=== PATIENT | female | born 1995 | race Caucasian/White ===

== ENCOUNTER → 2022-04-07 | Outpatient (CLI) | payer OTHER ==
--- NOTE | 2022-04-07 14:25 | US ---
EXAMINATION TYPE: Ultrasound OB <= 14 week fetus DATE OF EXAM: 04/07/2022 9:34 AM COMPARISON: NONE CLINICAL HISTORY: 26-year-old female Z36.89, ENCOUNTER FOR OTHER SPECIFIED SCREENING. Confi rmation of EXAM PERFORMED: Transabdominal (TA) FINDINGS: EXAM MEASUREMENTS: GESTATIONAL AGE / DATING Physician Established: Not yet established Dates by LMP: 9 weeks/2 days) EDC: 11/08/2022 Dates by First Scan: No previous this is first scan Dates by Current Scan for: (9 weeks/0 days) EDC: 11/10/2022 MATERNAL ANATOMY Uterus: 12.8 x 6.9 x 8.3 cm Right Ovary: 4.6 x 2.1 x 2.1 cm Left Ovary: 3.8 x 2.8 x 2.3 cm Post CDS / Adnexa: Appears wnl Presence of free fluid: No Presence of corpus luteal cyst: Yes left ovary 2.0 x 1.4 x 1.8 cm Presence of subchorionic bleed: Yes, measuring 2.1 x 0.8 x 1.5 cm adjacent to GS on the left GESTATION / SURVEY CRL:18.15 mm 8 weeks/3 days) MSD: 3.99 cm(9 weeks/4 days) Yolk Sac (normal less than 6mm): 4 mm Heart Rate: 155pm Rhythm: Normal IUP: Viable IUP Date of LMP: 02/01/2022 Beta HcG (if available): Not available IMPRESSION: 1. Single live intrauterine with estimated gestational age of 9 weeks 2 days by LMP. Curren t ultrasound biometry is concordant (9 weeks 0 days). 2. Small left-sided perigestational bleed. 3. Short interval follow-up can be considered. Otherwise, routine survey recommended at 18-20 w eeks.
== END | disposition home or self-care (01) ==
LOC: RADUSWWP 08:51
PROVIDERS: ATTEND Obstetrics & Gynecology
DX: Z36.89 Encounter for other specified antenatal screening (principal); Z3A.09 9 weeks gestation of pregnancy
CPT/HCPCS: 76801

== ENCOUNTER → 2022-11-01 | Outpatient (CLI) | payer OTHER ==
--- NOTE | 2022-10-31 07:36 | P.HPOB ---
History of Present Illness H&P Date: 10/31/22 Chief Complaint: Patient presents for delivery This patient is a pleasant 27-year-old 3 para 2 female estimated date of confinement 11/08/2022 estimated gestational age 39 weeks who presents to labor and delivery for delivery. Patient's is been complicated by an unstable lie. She was breech at 35 weeks and then an oblique at 37 weeks and most recently she reverted back to breech. Patient I discussed management of this and she wishes to proceed with trial of external cephalic version. If unsuccessful that she would like to proceed with section and tubal ligation. Patient's otherwise has been uncomplicated. Review of Systems Genitourinary: Reports Menstruation: Reports amenorrhea Past Medical History Additional Past Medical History / Comment(s): Patient's had 2 previous vaginal deliveries. She reports a hemorrhage with her last baby. History of Any Multi-Drug Resistant Organisms: None Reported Past Surgical History: No Surgical Hx Reported Past Anesthesia/Blood Transfusion Reactions: No Reported Reaction Past Psychological History: No Psychological Hx Reported Smoking Status: Never smoker Past Alcohol Use History: None Reported Past Drug Use History: None Reported Medications and Allergies Allergies Allergy/AdvReac Type Severity Reaction Status Date / Time No Known Allergies Allergy Verified 10/31/22 07:33 Exam - OBG Physical Exam Abdomen: bowel sounds normal, no diffuse tenderness, no bruit present, no guarding noted, no hepatomegaly, no splenomegaly, no mass Vulva: both: normal Vagina: normal moisture, no discharge Cervix: no lesion (Cervix in the office is 1 cm uneffaced), no discharge Uterus: enlarged (Fundal height is 38 cm) Results blood work shows she is A positive, rubella immune, RPR nonreactive, HIV is nonreactive, hepatitis B was negative, quad screen was negative, group B strep was negative, Glucola was 126. Most recent ultrasound showed estimated weight 5 lbs. 9 oz. noemi breech presentation Assessment and Plan Assessment: This is a pleasant 27-year-old 3 para 2 female 39-0/7 gestation who presents for delivery. Patient's had an unstable lie the last few weeks and plan at this time is to try an external cephalic version. If unsuccessful patient desires to proceed with section and also requests permanent sterilization at that time. I did discuss these procedures in detail with the patient and she understands the risks. All the patient's questions are answered and a written consent is obtained. (1) 39 weeks gestation of Status: Acute Code(s): Z3A.39 - 39 WEEKS GESTATION OF SNOMED Code(s): 66199659 (2) Unstable lie Status: Acute Code(s): O32.0XX0 - MATERNAL CARE FOR UNSTABLE LIE, NOT APPLICABLE OR UNSP SNOMED Code(s): 12470501 (3) Elective induction of labor planned Status: Acute Code(s): ZAP4880 - SNOMED Code(s): 425685954
[~2022-11-01] MED LIST: CITRIC ACID-SODIUM CITRATE 15 ML CUP PO ONE; HYDROmorphone 0.5 MG/0.5 ML SYRINGE IVP PRN; LACTATED RINGERS 1,000 ML IV ONE; LACTATED RINGERS 1,000 ML IV SCH; LIDOCAINE 0.5% (PF) 5 MG/ML (50 ML SDV) SQ PRN; OXYTOCIN 30 UNITS/500 ML NS 30 UNIT in SALINE 1 500ML.BAG IV SCH; TERBUTALINE 1 MG/ML VIAL SQ PRN
[2022-11-01 06:09] LABS: Basophils % (A) 1 %; Eosinophils % (A) 1 %; HCT 33.7 % (34.0-46.0); HGB 11.6 gm/dL (11.4-16.0); Lymphocytes % (A) 23 %; MCH 33.9 pg (25.0-35.0); MCHC 34.3 g/dL (31.0-37.0); MCV 98.8 fL (80.0-100.0); Mean Platelet Volume 7.9; Monocytes # (A) 0.3 k/uL (0-1.0); Monocytes % (A) 8 %; Neutrophils # (A) 2.8 k/uL (1.3-7.7); Neutrophils % (A) 65 %; Platelet Count 212 k/uL (150-450); RBC 3.41 m/uL (3.80-5.40); WBC 4.2 k/uL (3.8-10.6)
[2022-11-01 06:20] VITALS: BP 116/70; PULSE 83; RESP 16; TEMP 97.5
--- NOTE | 2022-11-01 06:35 | P.PN ---
Progress Note - Text Progress Note Date: 11/01/22 Patient presented to labor and delivery for trial of external cephalic version. Ultrasounds done at bedside which shows persistent breech with the head on the right upper quadrant. 3 attempts are made at external cephalic version without success. Patient this time wishes to proceed with section. She has changed her mind and does not want to have a tubal ligation. Plan is to keep the patient is admitted and do the section probably later today pending scheduling.
--- NOTE | 2022-11-03 09:00 | P.PN ---
Progress Note - Text Progress Note Date: 11/03/22 (748) Anesthesia Postop day 1 Subjective: Status Post with Duramorph. Patient seen and examined. Doing well without complaint. VAS 0/10 overnight. No nausea or vomiting. Mild pruritus tolerable.. Denies fever. Gross lower extremity strength intact. Without apparent anesthetic complications. Objective: Vital signs reviewed Heart: Regular Rate Lungs: Good chest excursion Abdomen: Appears nondistended Assessment: Status post with Duramorph postop day 1 Plan: Continue current care with your medical management. Anticipate increase in pain needs today since Duramorph is finished
--- NOTE | 2022-11-03 17:56 | P.DS ---
Providers Date of admission: 11/01/22 05:43 Expected date of discharge: 11/01/22 Attending physician: Thomas Lucero Primary care physician: Stated None - Discharge Diagnosis(es) (1) 39 weeks gestation of Status: Acute (2) Unstable lie Status: Acute (3) Elective induction of labor planned Status: Acute Hospital Course: Please see dictated H&P and patient's admission. Brief summary is a 27-year-old 3 para 2 female 39 weeks gestation admitted for attempted cephalic version. This was unsuccessful, patient was monitored for over 6 hours and then felt be stable for discharge home to follow up the next day for a primary section. Procedures: External cephalic version, unsuccessful Patient Condition at Discharge: Good Plan - Discharge Summary Discharge Rx Participant: Yes New Discharge Prescriptions: No Action Vit No.179/Iron/Folic [ Tablet] 1 tab PO DAILY Famotidine [Pepcid] 20 mg PO DAILY Discharge Medication List Famotidine [Pepcid] 20 mg PO DAILY 11/01/22 [History] Vit No.179/Iron/Folic [ Tablet] 1 tab PO DAILY 11/01/22 [History] Discharge Disposition: HOME SELF-CARE
== END ==
LOC: FBPOP 05:43 → INTOOBSV 05:43 → 4FBP 05:43 → UNDOADMOB 05:43 → EDSTATUS 06:00 → UNDODISOB 11:50
PROVIDERS: ATTEND Obstetrics & Gynecology
DX: O32.0XX0 Maternal care for unstable lie, not applicable or unspecified (principal); Z3A.39 39 weeks gestation of pregnancy
CPT/HCPCS: 85025; 86850; 86900; 86901; 96360; 96361

== ENCOUNTER 2022-11-25 17:38 | Inpatient (IN) | payer OTHER ==
--- NOTE | 2022-11-25 19:49 | ED ---
General Adult HPI - General Source: patient, RN notes reviewed, old records reviewed Mode of arrival: ambulatory Limitations: no limitations <Den Mccormack - Last Filed: 11/25/22 19:47> <Jaxson Lott - Last Filed: 11/25/22 22:36> - General Chief complaint: Recheck/Abnormal Lab/Rx Stated complaint: headache, hypertension - post op Time Seen by Provider: 11/25/22 19:10 - History of Present Illness Initial comments: 27-year-old female, 23 days presenting for evaluation of elevated blood pressure. Patient states she has had a headache over the past one week. She was seen by her dentist 3 days ago and was told that her blood pressure was elevated. She had contacted her OB office and was instructed to monitor symptoms. She was not evaluated at that time. She presents today with elevated blood pressure, headache. Denies any difficulty breathing. Reports some lower abdominal pain associated with her , no right upper quadrant pain. No lower extremity pain or swelling. No focal numbness or weakness. She states she did have a headache over the past one week with some associated visual changes which are currently resolved. (Den Mccormack) - Related Data Home Medications Medication Instructions Recorded Confirmed Famotidine [Pepcid] 20 mg PO DAILY PRN 11/01/22 11/25/22 Vit No.179/Iron/Folic 1 tab PO DAILY 11/01/22 11/25/22 [ Tablet] Amoxicillin 500 mg PO TID 11/25/22 11/25/22 Ibuprofen [Motrin] 600 mg PO Q6H PRN 11/25/22 11/25/22 Previous Rx's Medication Instructions Recorded Ferrous Sulfate [Iron (65 MG 325 mg PO BID-W/MEALS #60 tab 11/04/22 Elemental)] oxyCODONE HCL [OxyIR] 5 mg PO Q4HR PRN #18 tab 11/04/22 Allergies Allergy/AdvReac Type Severity Reaction Status Date / Time No Known Allergies Allergy Verified 11/25/22 18:17 Review of Systems ROS Other: All systems not noted in ROS Statement are negative. <Den Mccormack - Last Filed: 11/25/22 19:47> ROS Other: All systems not noted in ROS Statement are negative. <Jaxson Lott - Last Filed: 11/25/22 22:36> ROS Statement: Those systems with pertinent positive or pertinent negative responses have been documented in the HPI. Past Medical History Additional Past Medical History / Comment(s): Patient's had 2 previous vaginal deliveries. She reports a hemorrhage with her last baby. History of Any Multi-Drug Resistant Organisms: None Reported Past Surgical History: Section Past Anesthesia/Blood Transfusion Reactions: No Reported Reaction Past Psychological History: No Psychological Hx Reported Smoking Status: Never smoker Past Alcohol Use History: None Reported Past Drug Use History: None Reported <Den Mccormack - Last Filed: 11/25/22 19:47> General Exam Limitations: no limitations General appearance: alert, in no apparent distress Head exam: Present: atraumatic, normocephalic Eye exam: Present: normal appearance, PERRL ENT exam: Present: normal exam Neck exam: Present: normal inspection. Absent: tenderness, meningismus Respiratory exam: Present: normal lung sounds bilaterally. Absent: respiratory distress, wheezes Cardiovascular Exam: Present: regular rate, normal rhythm GI/Abdominal exam: Present: soft. Absent: distended, tenderness, guarding Extremities exam: Present: normal inspection, normal capillary refill. Absent: pedal edema Neurological exam: Present: alert, oriented X3, CN II-XII intact. Absent: motor sensory deficit Psychiatric exam: Present: normal affect, normal mood Skin exam: Present: warm, dry, intact <Den Mccormack N - Last Filed: 11/25/22 19:47> Course Vital Signs 11/25/22 11/25/22 11/25/22 18:13 19:15 19:30 Temperature 98.7 F Pulse Rate 70 70 65 Respiratory 20 16 16 Rate Blood Pressure 178/114 152/105 154/62 O2 Sat by Pulse 97 98 Oximetry 11/25/22 11/25/22 11/25/22 20:00 20:15 20:30 Temperature Pulse Rate 64 64 64 Respiratory 16 16 16 Rate Blood Pressure 148/104 153/102 142/87 O2 Sat by Pulse 99 96 Oximetry 11/25/22 11/25/22 11/25/22 20:45 21:00 21:15 Temperature Pulse Rate 66 52 L 61 Respiratory 16 16 16 Rate Blood Pressure 157/94 179/107 175/104 O2 Sat by Pulse 99 100 98 Oximetry 11/25/22 11/25/22 11/25/22 21:30 21:45 22:00 Temperature Pulse Rate 71 59 L 60 Respiratory 16 16 16 Rate Blood Pressure 176/102 167/99 159/107 O2 Sat by Pulse 96 98 99 Oximetry Medical Decision Making - Lab Data Result diagrams: 11/25/22 19:34 11/25/22 20:27 <Jaxson Lott - Last Filed: 11/25/22 22:36> - Medical Decision Making Patient is sent out to me by prior shift physician, Dr. Mccormack. Briefly, patient is a 27-year-old female presents to the emergency department for headache and elevated blood pressure. She is approximately 4 weeks . Presentation concerning for preeclampsia. Plan at sign out follow-up with pending labs. Labs are unremarkable. Labs do not sports a diagnosis of preeclampsia. Patient reevaluated bedside at 10:30 PM still having symptoms awfully concerning for preeclampsia. She does not have a history of headaches. She still having what she describes as a severe headache. Patient's blood pressure trended in the emergency room still significantly elevated. Case was rediscussed with Dr. Granger who requests the patient be admitted for treatment and evaluation. Recommended that patient be started on magnesium infusion. Patient is agreeable with admission. (Jaxson Lott) - Lab Data Lab Results 11/25/22 11/25/22 11/25/22 Range/Units 19:34 19:34 20:27 WBC 6.6 (3.8-10.6) k/uL RBC 4.07 (3.80-5.40) m/uL Hgb 13.5 D (11.4-16.0) gm/dL Hct 40.7 (34.0-46.0) % MCV 99.9 (80.0-100.0) fL MCH 33.3 (25.0-35.0) pg MCHC 33.3 (31.0-37.0) g/dL RDW 12.7 (11.5-15.5) % Plt Count 244 (150-450) k/uL MPV 7.8 Neutrophils % 50 % Lymphocytes % 39 % Monocytes % 7 % Eosinophils % 3 % Basophils % 0 % Neutrophils # 3.3 (1.3-7.7) k/uL Lymphocytes # 2.5 (1.0-4.8) k/uL Monocytes # 0.5 (0-1.0) k/uL Eosinophils # 0.2 (0-0.7) k/uL Basophils # 0.0 (0-0.2) k/uL Sodium 140 (137-145) mmol/L Potassium 3.9 (3.5-5.1) mmol/L Chloride 108 H (98-107) mmol/L Carbon Dioxide 24 (22-30) mmol/L Anion Gap 8 mmol/L BUN 14 (7-17) mg/dL Creatinine 0.96 (0.52-1.04) mg/dL Est GFR (CKD-EPI)AfAm >90 (>60 ml/min/1.73 sqM) Est GFR (CKD-EPI)NonAf 80 (>60 ml/min/1.73 sqM) Glucose 96 (74-99) mg/dL Uric Acid (3.7-7.4) mg/dL Calcium 9.1 (8.4-10.2) mg/dL Magnesium 2.3 (1.6-2.3) mg/dL Total Bilirubin 0.5 (0.2-1.3) mg/dL AST 22 (14-36) U/L ALT 24 (4-34) U/L Alkaline Phosphatase 72 (38-126) U/L Lactate Dehydrogenase (120-246) U/L Total Protein 6.5 (6.3-8.2) g/dL Albumin 4.1 (3.5-5.0) g/dL Amylase 67 (30-110) U/L Lipase 64 (23-300) U/L Urine Color Light Yellow Urine Appearance Clear (Clear) Urine pH 6.5 (5.0-8.0) Ur Specific [place] 1.013 (1.001-1.035) Urine Protein Negative (Negative) Urine Glucose (UA) Negative (Negative) Urine Ketones Negative (Negative) Urine Blood Moderate H (Negative) Urine Nitrite Negative (Negative) Urine Bilirubin Negative (Negative) Urine Urobilinogen <2.0 (<2.0) mg/dL Ur Leukocyte Esterase Negative (Negative) Urine RBC 55 H (0-5) /hpf Urine WBC 4 (0-5) /hpf Ur Squamous Epith Cells 1 (0-4) /hpf 11/25/22 Range/Units 20:27 WBC (3.8-10.6) k/uL RBC (3.80-5.40) m/uL Hgb (11.4-16.0) gm/dL Hct (34.0-46.0) % MCV (80.0-100.0) fL MCH (25.0-35.0) pg MCHC (31.0-37.0) g/dL RDW (11.5-15.5) % Plt Count (150-450) k/uL MPV Neutrophils % % Lymphocytes % % Monocytes % % Eosinophils % % Basophils % % Neutrophils # (1.3-7.7) k/uL Lymphocytes # (1.0-4.8) k/uL Monocytes # (0-1.0) k/uL Eosinophils # (0-0.7) k/uL Basophils # (0-0.2) k/uL Sodium (137-145) mmol/L Potassium (3.5-5.1) mmol/L Chloride (98-107) mmol/L Carbon Dioxide (22-30) mmol/L Anion Gap mmol/L BUN (7-17) mg/dL Creatinine (0.52-1.04) mg/dL Est GFR (CKD-EPI)AfAm (>60 ml/min/1.73 sqM) Est GFR (CKD-EPI)NonAf (>60 ml/min/1.73 sqM) Glucose (74-99) mg/dL Uric Acid 8.1 H (3.7-7.4) mg/dL Calcium (8.4-10.2) mg/dL Magnesium (1.6-2.3) mg/dL Total Bilirubin (0.2-1.3) mg/dL AST (14-36) U/L ALT (4-34) U/L Alkaline Phosphatase (38-126) U/L Lactate Dehydrogenase 205 (120-246) U/L Total Protein (6.3-8.2) g/dL Albumin (3.5-5.0) g/dL Amylase (30-110) U/L Lipase (23-300) U/L Urine Color Urine Appearance (Clear) Urine pH (5.0-8.0) Ur Specific [place] (1.001-1.035) Urine Protein (Negative) Urine Glucose (UA) (Negative) Urine Ketones (Negative) Urine Blood (Negative) Urine Nitrite (Negative) Urine Bilirubin (Negative) Urine Urobilinogen (<2.0) mg/dL Ur Leukocyte Esterase (Negative) Urine RBC (0-5) /hpf Urine WBC (0-5) /hpf Ur Squamous Epith Cells (0-4) /hpf Disposition <Den Mccormack - Last Filed: 11/25/22 19:47> Decision Time: 22:36 <Jaxson Lott - Last Filed: 11/25/22 22:36> Clinical Impression: Preeclampsia Disposition: ADMITTED IP TO THIS [facility] Condition: Serious Referrals: None,Stated [Primary Care Provider] - 1-2 days
[2022-11-25 20:05] LABS: Basophils % (A) 0 %; Eosinophils # (A) 0.2 k/uL (0-0.7); Eosinophils % (A) 3 %; HCT 40.7 % (34.0-46.0); Lymphocytes # (A) 2.5 k/uL (1.0-4.8); Lymphocytes % (A) 39 %; MCH 33.3 pg (25.0-35.0); MCHC 33.3 g/dL (31.0-37.0); MCV 99.9 fL (80.0-100.0); Mean Platelet Volume 7.8; Monocytes # (A) 0.5 k/uL (0-1.0); Monocytes % (A) 7 %; Neutrophils # (A) 3.3 k/uL (1.3-7.7); Neutrophils % (A) 50 %; Platelet Count 244 k/uL (150-450); RBC 4.07 m/uL (3.80-5.40); RDW 12.7 % (11.5-15.5); WBC 6.6 k/uL (3.8-10.6)
--- NOTE | 2022-11-25 20:18 | XR ---
EXAMINATION TYPE: XR chest 2V DATE OF EXAM: 11/25/2022 COMPARISON: NONE HISTORY: Hypertension TECHNIQUE: 2 views FINDINGS: There is some linear density left lower lung field. Heart and mediastinum are normal. There are no hilar masses. Costophrenic angles are clear. The bony thorax is intact IMPRESSION: Subsegmental atelectasis left lower lung field. Normal heart
[2022-11-25 20:19] LABS: Appearance,Urine Clear (Clear); Bilirubin,Urine Negative (Negative); Blood,Urine Moderate (Negative); Color,Urine Light Yellow; Glucose,Urine (UA) Negative (Negative); Ketones,Urine Negative (Negative); Leukocyte Esterase,Urine Negative (Negative); Nitrite,Urine Negative (Negative); PH, Urine 6.5 (5.0-8.0); Protein,Urine Negative (Negative); RBC,Urine 55 /hpf (0-5); Specific Gravity,Urine 1.013 (1.001-1.035); Squamous Epithelial Cell,Urine 1 /hpf (0-4); Urobilinogen,Urine <2.0 mg/dL (<2.0); WBC,Urine 4 /hpf (0-5)
--- NOTE | 2022-11-25 20:24 | CT ---
EXAMINATION TYPE: CT brain wo con DATE OF EXAM: 11/25/2022 COMPARISON: None HISTORY: headache, postop pt CT DLP: 1178.4 mGycm Automated exposure control for dose reduction was used. Images obtained the brain with no contrast. Ventricles and sulci appear normal. There is no mass effect or midline shift. No sign of intracranial hemorrhage. The calvarium is intact. Skull base is intact. There is normal aeration of the mastoid s inuses. IMPRESSION: Negative unenhanced head CT scan.
[2022-11-25 20:46] LABS: HGB 13.5 gm/dL (11.4-16.0)
[2022-11-25 21:01] LABS: Potassium 3.9 mmol/L (3.5-5.1)
[2022-11-25 21:02] LABS: ALT 24 U/L (4-34); AST 22 U/L (14-36); African American GFR (CKD) >90 (>60 ml/min/1.73 sqM); Albumin 4.1 g/dL (3.5-5.0); Alkaline Phosphatase 72 U/L (38-126); Amylase 67 U/L (30-110); Anion Gap 8 mmol/L; Blood Urea Nitrogen 14 mg/dL (7-17); Calcium 9.1 mg/dL (8.4-10.2); Carbon Dioxide 24 mmol/L (22-30); Chloride 108 mmol/L (98-107); Glucose 96 mg/dL (74-99); Lipase 64 U/L (23-300); Magnesium 2.3 mg/dL (1.6-2.3); Non-African American GFR(CKD) 80 (>60 ml/min/1.73 sqM); Sodium 140 mmol/L (137-145); Total Bilirubin 0.5 mg/dL (0.2-1.3); Total Protein 6.5 g/dL (6.3-8.2)
[2022-11-25 21:17] LABS: Uric Acid 8.1 mg/dL (3.7-7.4)
[2022-11-25] MEDS ORDERED: NALOXONE 0.4 MG/ML 1 ML VIAL IV PRN (22:29)
[2022-11-25] MEDS ORDERED: MAGNESIUM SULFATE-WATER PMX 4 GM in WATER FOR INJECTION 1 100ML.BAG IVPB ONE (22:30)
[2022-11-25] MEDS ORDERED: SODIUM CHLORIDE 0.9% 1,000 ML IV SCH (22:30)
[2022-11-26 00:09] LABS: Prothrombin Time 10.8 sec (9.0-12.0)
[2022-11-26 00:10] LABS: Partial Thromboplastin Time 23.5 sec (22.0-30.0)
[2022-11-26] MEDS: ACETAMINOPHEN TAB 325 MG TAB PO PRN ×4 (00:17→23:24)
[2022-11-26] MEDS ORDERED: LACTATED RINGERS 1,000 ML IV SCH ×2 (04:55→23:12)
--- NOTE | 2022-11-26 09:33 | P.HPOB ---
History of Present Illness H&P Date: 11/26/22 Chief Complaint: headache 27-year-old status post primary low transverse at 39 weeks for breech presentation on 11/02/2022 presents postop day 23 complaining of a headache for a week. Her blood pressures were up to 170/101. She was admitted for preeclampsia placed on magnesium sulfate. She has diuresed more than 2 L in the last 12 hours. Her blood pressures have come down to normal. The plan will be to continue the magnesium sulfate for 24 hours and then monitor patient's blood pressures to see if they start to creep back up. Patient states that her headache is now gone. We had a long discussion about what preeclampsia is and what to expect. Review of Systems All systems: negative Constitutional: Denies chills, Denies fever Eyes: denies blurred vision, denies pain Ears, nose, mouth and throat: Denies headache, Denies sore throat Cardiovascular: Denies chest pain, Denies shortness of breath Respiratory: Denies cough Gastrointestinal: Denies abdominal pain, Denies diarrhea, Denies nausea, Denies vomiting Genitourinary: Denies dysuria, Denies hematuria Musculoskeletal: Denies myalgias Integumentary: Denies pruritus, Denies rash Neurological: Denies numbness, Denies weakness Psychiatric: Denies anxiety, Denies depression Endocrine: Denies fatigue, Denies weight change Past Medical History Additional Past Medical History / Comment(s): Patient has had 2 vaginal deliveries and 1 section. History of Any Multi-Drug Resistant Organisms: None Reported Past Surgical History: Section Past Anesthesia/Blood Transfusion Reactions: No Reported Reaction Past Psychological History: No Psychological Hx Reported Smoking Status: Never smoker Past Alcohol Use History: None Reported Past Drug Use History: None Reported Medications and Allergies Home Medications Medication Instructions Recorded Confirmed Type Famotidine [Pepcid] 20 mg PO DAILY PRN 11/01/22 11/25/22 History Vit No.179/Iron/Folic 1 tab PO DAILY 11/01/22 11/25/22 History [ Tablet] Ferrous Sulfate [Iron (65 MG 325 mg PO BID-W/MEALS #60 tab 11/04/22 11/25/22 Rx Elemental)] oxyCODONE HCL [OxyIR] 5 mg PO Q4HR PRN #18 tab 11/04/22 11/25/22 Rx Amoxicillin 500 mg PO TID 11/25/22 11/25/22 History Ibuprofen [Motrin] 600 mg PO Q6H PRN 11/25/22 11/25/22 History Allergies Allergy/AdvReac Type Severity Reaction Status Date / Time No Known Allergies Allergy Verified 11/25/22 18:17 Exam Osteopathic Statement: *. No significant issues noted on an osteopathic structural exam other than those noted in the History and Physical/Consult. Vital Signs Temp Pulse Pulse Resp BP BP Pulse Ox 11/26/22 09:00 75 17 112/79 97 11/26/22 08:00 80 16 119/81 99 11/26/22 07:00 97.7 F 80 16 119/61 96 11/26/22 06:00 97.9 F 69 18 126/86 99 11/26/22 05:00 52 L 15 114/80 11/26/22 04:00 61 14 115/76 94 L 11/26/22 03:00 54 L 16 119/82 94 L 11/26/22 02:00 65 15 119/82 97 11/26/22 01:00 67 19 133/82 98 11/25/22 23:45 98.4 F 78 15 126/86 97 11/25/22 23:40 72 15 124/85 97 11/25/22 23:35 75 16 135/88 97 11/25/22 23:30 72 15 131/85 97 11/25/22 23:25 66 15 142/93 98 11/25/22 23:13 98.6 F 65 16 162/108 97 11/25/22 23:00 74 15 127/87 98 11/25/22 22:45 64 16 142/91 98 11/25/22 22:30 67 16 154/87 99 11/25/22 22:15 65 16 164/94 98 11/25/22 22:00 60 16 159/107 99 11/25/22 21:45 59 L 16 167/99 98 11/25/22 21:30 71 16 176/102 96 11/25/22 21:15 61 16 175/104 98 11/25/22 21:00 52 L 16 179/107 100 11/25/22 20:45 66 16 157/94 99 11/25/22 20:30 64 16 142/87 11/25/22 20:15 64 16 153/102 96 11/25/22 20:00 64 16 148/104 99 11/25/22 19:30 65 16 154/62 98 11/25/22 19:15 70 16 152/105 11/25/22 18:13 98.7 F 70 20 178/114 97 Intake and Output 11/25/22 11/26/22 11/26/22 22:59 06:59 14:59 Output Total 1650 775 Balance -1650 -775 Output: Urine 1650 775 Uretheral (Bower) 200 Other: Voiding Method Indwelling Catheter Weight 83.007 kg Heart: Regular rate and rhythm Lungs: Clear to auscultation bilaterally Abdomen: Soft, nontender Extremities: Negative Homans sign 2+ out of 4 DTR Results Result Diagrams: 11/25/22 19:34 11/25/22 20:27 Abnormal Lab Results - Last 24 Hours (Table) 11/25/22 11/25/22 11/25/22 Range/Units 19:34 20:27 20:27 Chloride 108 H (98-107) mmol/L Uric Acid 8.1 H (3.7-7.4) mg/dL Magnesium (1.6-2.3) mg/dL Urine Blood Moderate H (Negative) Urine RBC 55 H (0-5) /hpf 11/25/22 Range/Units 23:57 Chloride (98-107) mmol/L Uric Acid (3.7-7.4) mg/dL Magnesium 4.9 H (1.6-2.3) mg/dL Urine Blood (Negative) Urine RBC (0-5) /hpf Assessment and Plan (1) Preeclampsia in period Current Visit: Yes Status: Acute Code(s): O14.95 - UNSPECIFIED PRE- ECLAMPSIA, COMPLICATING THE PUERPERIUM SNOMED Code(s): 928165565 (2) Status post primary low transverse section Current Visit: Yes Status: Acute Code(s): Z98.891 - HISTORY OF UTERINE SCAR FROM PREVIOUS SURGERY SNOMED Code(s): 899739257 Plan: 1. Continue mag sulfate until 24 hours 2. Continue monitoring Is and Os 3. Advanced diet as tolerated 4. Seizure precautions
[2022-11-26] MEDS: MAGNESIUM SULFATE-WATER PMX 20 GM in WATER FOR INJECTION 1 500ML.BAG IV SCH ×3 (10:13→19:20)
[2022-11-27 04:01] VITALS: RESP 16
[2022-11-27] MEDS: ACETAMINOPHEN TAB 325 MG TAB PO PRN (04:43)
[2022-11-27] MEDS: MAGNESIUM SULFATE-WATER PMX 20 GM in WATER FOR INJECTION 1 500ML.BAG IV SCH (06:27)
[2022-11-27 07:59] VITALS: TEMP 98.6
--- NOTE | 2022-11-27 08:17 | P.PNOBGPC ---
Subjective - Subjective Principal diagnosis: S/P 1*LTCS POD #24 with PP pre-eclampsia Interval history: Patient had magnesium sulfate for 24 hours. Blood pressures came down and her headache was better. Within a few hours after discontinuing the magnesium sulfate her blood pressure started to rise to 140s over 80s and her headache started to come back. Put her on labetalol 100 mg twice a day which is bringing her blood pressures back down to her normal 1 teens over 70s. As long as the patient continues in this manner with the twice daily dosing she'll be discharged home today in stable condition to follow-up with Dr. Lucero in a few days for another blood pressure check. Patient reports: Reports appetite normal, Reports voiding normally, Reports pain well controlled, Reports ambulating normally : doing well Objective - Vital Signs Latest vital signs: Vital Signs Temp Pulse Resp BP Pulse Ox 11/27/22 07:57 98.6 F 73 16 118/78 98 11/27/22 06:43 84 16 117/78 11/27/22 04:00 71 16 142/88 98 11/27/22 00:00 97.9 F 70 19 115/78 96 11/26/22 23:00 97.9 F 78 18 135/86 97 11/26/22 22:00 70 107/72 11/26/22 21:00 73 19 125/86 11/26/22 20:00 69 19 113/77 11/26/22 19:00 71 15 126/88 95 11/26/22 18:00 86 16 118/81 11/26/22 17:00 97.6 F 92 16 112/79 11/26/22 16:00 98.3 F 96 15 120/84 99 11/26/22 15:00 72 17 127/83 99 11/26/22 14:00 78 17 117/83 11/26/22 13:00 91 16 113/77 98 11/26/22 12:00 96 17 123/87 98 11/26/22 11:00 77 16 122/79 11/26/22 10:00 83 16 122/76 99 11/26/22 09:00 75 17 112/79 97 Intake and Output 11/26/22 11/27/22 11/27/22 22:59 06:59 14:59 Intake Total 455.833 183.333 Balance 455.833 183.333 Intake: Intake, IV Titration 455.833 183.333 Amount Magnesium Sulfate-Water 455.833 183.333 Pmx 20 gm In Water For Injection 1 500ml.bag @ 2 GM/HR 50 mls/hr IV .Q10H [facility] Rx#:[id number] Other: Voiding Method Indwelling Catheter Indwelling Catheter - Exam Lungs: bilateral: normal Chest: Normal S1, Normal S2 Extremities: Present: normal Abdomen: Present: normal appearance, soft. Absent: distention, tenderness Incision: Present: normal, dry, intact Uterus: Present: normal, firm Assessment and Plan (1) Preeclampsia in period Current Visit: Yes Status: Acute Code(s): O14.95 - UNSPECIFIED PRE-ECLAMPSI A, COMPLICATING THE PUERPERIUM SNOMED Code(s): 323853019 (2) Status post primary low transverse section Current Visit: Yes Status: Acute Code(s): Z98.891 - HISTORY OF UTERINE SCAR FROM PREVIOUS SURGERY SNOMED Code(s): 940975056 Plan: 1. labetalol 100mg bid 2. monitor for s/s pre-e 3. d/c home later today to f/u with Dr Lucero in a few days.
[2022-11-27] MEDS ORDERED: IBUPROFEN 600 MG TAB PO SCH (09:00)
[2022-11-27] MEDS ORDERED: LABETALOL 100 MG TAB PO SCH (09:00)
[2022-11-27 11:37] VITALS: BP 108/75; PULSE 85
[2022-11-27] MEDS ORDERED: LACTATED RINGERS 1,000 ML IV SCH (23:12)
== END 2022-11-27 12:57 | disposition home or self-care (01) | DRG 561 ==
LOC: EC 17:38 → 4FBP 22:29
PROVIDERS: ADMIT Obstetrics & Gynecology; ATTEND Obstetrics & Gynecology
DX: O14.95 Unspecified pre-eclampsia, complicating the puerperium (principal); Z79.899 Other long term (current) drug therapy; O34.211 Maternal care for low transverse scar from previous cesarean delivery
CPT/HCPCS: 36415; 70450; 71046; 80053; 81001; 82150; 83615; 83690; 83735; 84550; 85025; 85610; 85730; 99284